=== PATIENT | male | born 1945 | race Caucasian/White ===

== ENCOUNTER 2023-02-11 08:42 | Outpatient (CLI) | payer MEDICARE, BC ==
[2023-02-11] MEDS ORDERED: Magnevist 469MG/ML 20 ML VIAL ONE (09:55)
== END 2023-02-11 08:43 | disposition home or self-care (01) ==
LOC: CSHMRI 08:42
PROVIDERS: ATTEND Urology
DX: R97.20 Elevated prostate specific antigen [PSA] (principal)
CPT/HCPCS: 72197; 82565

== ENCOUNTER 2024-09-15 13:15 | Outpatient (CLI) | payer MEDICARE, BC | END 2024-09-15 13:16 | disposition home or self-care (01) | LOC: CSHMRI 13:15 | PROVIDERS: ATTEND Urology | DX: R97.20 Elevated prostate specific antigen [PSA] (principal) | CPT/HCPCS: 36415; 72197; 82565 ==